=== PATIENT | female | born 2000 | race Hispanic/Latino ===

== ENCOUNTER 2019-11-14 19:02 | Emergency (ER) | payer OTHER ==
--- NOTE | 2019-11-14 20:08 | ER ---
Nurse's Notes [facility] – [place], [place] Name: Rosemary Montague Age: 19 yrs Sex: Female : 2000 Arrival Date: 11/14/2019 Time: 19:07 Bed 11 Private MD: Diagnosis: Impacted cerumen, right ear Presentation: 11/14 19:50 Presenting complaint: Patient states: last night when i cleaned my right ear after i rr5 removed the ear wax it started to have sharp pain and hard to hear. 19:50 Transition of care: patient was not received from another setting of care. Onset of rr5 symptoms was November 13, 2019. Risk Assessment: Do you want to hurt yourself or someone else? Patient reports no desire to harm self or others. Initial Sepsis Screen: Does the patient meet any 2 criteria? No. Patient's initial sepsis screen is negative. Does the patient have a suspected source of infection? No. Patient's initial sepsis screen is negative. Care prior to arrival: None. 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 - Social history:: Smoking status: Patient/guardian denies using tobacco. - Ebola Screening: : Patient negative for fever greater than or equal to 101.5 degrees Fahrenheit, and additional compatible Ebola Virus Disease symptoms Patient denies exposure to infectious person Patient denies travel to an Ebola-affected area in the 21 days before illness onset. Screenin:00 Abuse screen: Denies threats or abuse. Denies injuries from another. Nutritional aa1 screening: No deficits noted. Tuberculosis screening: No symptoms or risk factors identified. Fall Risk None identified. Assessment: 20:00 General: Appears in no apparent distress. comfortable, Behavior is calm, cooperative, aa1 appropriate for age. Pain: Complains of pain in right ear Quality of pain is described as sharp, Pain began 1 day ago. Neuro: Level of Consciousness is awake, alert, obeys commands, Oriented to person, place, time, situation, Moves all extremities. Full function Gait is steady. Respiratory: Airway is patent Respiratory effort is even, unlabored, Respiratory pattern is regular, symmetrical. GI: No signs and/or symptoms were reported involving the gastrointestinal system. : No signs and/or symptoms were reported regarding the genitourinary system. EENT: Reports decreased hearing in right ear pain in right ear. Derm: Skin is intact, is healthy with good turgor, Skin is pink, warm \T\ dry. Musculoskeletal: Circulation, motion, and sensation intact. Capillary refill < 3 seconds. 20:34 Reassessment: Patient appears in no apparent distress at this time. Patient is alert, aa1 oriented x 3, equal unlabored respirations, skin warm/dry/pink. Discussed d/c \T\ f/u instructions with pt; denies questions or concerns at this time. Ambulatory to lobby with steady gait. Vital Signs: 19:54 BP 125 / 57; Pulse 70; Resp 16; Temp 98.5; Pulse Ox 100% ; Weight 58.97 kg; Height 5 rr5 ft. 3 in. (160.02 cm); Pain 5/10; 19:54 Body Mass Index 23.03 (58.97 kg, 160.02 cm) rr5 ED Course: 19:07 Patient arrived in ED. mr 19:21 Autumn Ortiz FNP-C [facility]. kb 19:21 Felipe Hurtado MD is Attending Physician. kb 19:50 Arm band placed on. rr5 19:54 Triage completed. rr5 20:00 Patient has correct armband on for positive identification. Bed in low position. Call aa1 light in reach. 20:34 No provider procedures requiring assistance completed. Patient did not have IV access aa1 during this emergency room visit. Administered Medications: No medications were administered Outcome: 20:05 Discharge ordered by . kb 20:34 Discharged to home ambulatory, with family. aa1 20:34 Condition: good 20:34 Discharge instructions given to patient, family, Instructed on discharge instructions, follow up and referral plans. Demonstrated understanding of instructions, follow-up care. 20:35 Patient left the ED. aa1 Signatures: Autumn Ortiz FNP-C FNP-Ckb Autenrieth, Alissa, RN RN aa1 Priya Travis Raymond, RN RN rr5
--- NOTE | 2019-11-14 20:08 | EDPHYS ---
Physician Documentation [facility] Name: Rosemary Montague Age: 19 yrs Sex: Female : 2000 Arrival Date: 11/14/2019 Time: 19:07 Bed 11 Private MD: ED Physician Felipe Hurtado HPI: 11/14 20:08 This 19 yrs old Female presents to ER via Ambulatory with complaints of Ear kb Pain. 20:08 The patient presents with pain. The complaints affect the right ear. Onset: The kb symptoms/episode began/occurred last night. Modifying factors: The symptoms are alleviated by nothing, the symptoms are aggravated by nothing. Associated signs and symptoms: The patient has no apparent associated signs or symptoms. Severity of symptoms: At their worst the symptoms were moderate in the emergency department the symptoms are unchanged. The patient has not experienced similar symptoms in the past. The patient has not recently seen a physician. Pt reports she cleaned her ears last night and the right one started hurting and felt full. 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 - Social history:: Smoking status: Patient/guardian denies using tobacco. - Ebola Screening: : Patient negative for fever greater than or equal to 101.5 degrees Fahrenheit, and additional compatible Ebola Virus Disease symptoms Patient denies exposure to infectious person Patient denies travel to an Ebola-affected area in the 21 days before illness onset. ROS: 20:06 Constitutional: Negative for fever, chills, and weight loss, Neck: Negative for injury, kb pain, and swelling, Cardiovascular: Negative for chest pain, palpitations, and edema, Respiratory: Negative for shortness of breath, cough, wheezing, and pleuritic chest pain, Abdomen/GI: Negative for abdominal pain, nausea, vomiting, diarrhea, and constipation, MS/Extremity: Negative for injury and deformity, Skin: Negative for injury, rash, and discoloration, Neuro: Negative for headache, weakness, numbness, tingling, and seizure. 20:06 ENT: Positive for ear pain. Exam: 20:06 Constitutional: This is a well developed, well nourished patient who is awake, alert, kb and in no acute distress. Head/Face: Normocephalic, atraumatic. Neck: Trachea midline, no thyromegaly or masses palpated, and no cervical lymphadenopathy. Supple, full range of motion without nuchal rigidity, or vertebral point tenderness. No Meningismus. Chest/axilla: Normal chest wall appearance and motion. Nontender with no deformity. No lesions are appreciated. Cardiovascular: Regular rate and rhythm with a normal S1 and S2. No gallops, murmurs, or rubs. Normal PMI, no JVD. No pulse deficits. Respiratory: Lungs have equal breath sounds bilaterally, clear to auscultation and percussion. No rales, rhonchi or wheezes noted. No increased work of breathing, no retractions or nasal flaring. Abdomen/GI: Soft, non-tender, with normal bowel sounds. No distension or tympany. No guarding or rebound. No evidence of tenderness throughout. Skin: Warm, dry with normal turgor. Normal color with no rashes, no lesions, and no evidence of cellulitis. MS/ Extremity: Pulses equal, no cyanosis. Neurovascular intact. Full, normal range of motion. Neuro: Awake and alert, GCS 15, oriented to person, place, time, and situation. Cranial nerves II-XII grossly intact. Motor strength 5/5 in all extremities. Sensory grossly intact. Cerebellar exam normal. Normal gait. 20:06 ENT: External ear(s): are unremarkable, Ear canal(s): cerumen impaction, that is moderate, that is hard, occluding the right ear canal, TM's: not visable, because of cerumen, Nose: is normal, Mouth: is normal, Posterior pharynx: is normal. Vital Signs: 19:54 BP 125 / 57; Pulse 70; Resp 16; Temp 98.5; Pulse Ox 100% ; Weight 58.97 kg; Height 5 rr5 ft. 3 in. (160.02 cm); Pain 5/10; 19:54 Body Mass Index 23.03 (58.97 kg, 160.02 cm) rr5 MDM: 19:56 Patient medically screened. kb 20:08 Data reviewed: vital signs, nurses notes. Data interpreted: Pulse oximetry: on room air kb is 100 %. Interpretation: normal. Counseling: I had a detailed discussion with the patient and/or guardian regarding: the historical points, exam findings, and any diagnostic results supporting the discharge/admit diagnosis, the need for outpatient follow up, an ENT specialist, to return to the emergency department if symptoms worsen or persist or if there are any questions or concerns that arise at home. Administered Medications: No medications were administered Disposition: 11/15 01:23 Co-signature as Attending Physician, Felipe Hurtado MD. raiza Disposition: 11/14/19 20:05 Discharged to Home. Impression: Impacted cerumen, right ear. - Condition is Stable. - Discharge Instructions: Earwax Buildup, Adult, Ear Irrigation. - Medication Reconciliation Form, Thank You Letter, Antibiotic Education, Prescription Opioid Use form. - Follow up: Private Physician; When: 2 - 3 days; Reason: Recheck today's complaints, Continuance of care, Re-evaluation by your physician. Follow up: Emergency Department; When: As needed; Reason: Worsening of condition. Signatures: Autumn Ortzi, ESTELAC KIRSTIN-Naty Garnica RN RN aa1 Felipe Hurtado MD MD pkl Lars Rivera, RN RN rr5 Corrections: (The following items were deleted from the chart) 11/14 20:35 20:05 11/14/2019 20:05 Discharged to Home. Impression: Impacted cerumen, right ear. aa1 Condition is Stable. Forms are Medication Reconciliation Form, Thank You Letter, Antibiotic Education, Prescription Opioid Use. Follow up: Private Physician; When: 2 - 3 days; Reason: Recheck today's complaints, Continuance of care, Re-evaluation by your physician. Follow up: Emergency Department; When: As needed; Reason: Worsening of condition. kb
[2019-11-14 22:15] VITALS: BP 125/57; TEMP 98.5; O2SAT 100
== END 2019-11-14 20:35 | disposition home or self-care (01) ==
LOC: ER 19:02
DX: H61.21 Impacted cerumen, right ear (principal)
CPT/HCPCS: 99281

== ENCOUNTER 2020-01-22 17:46 | Emergency (ER) | payer OTHER ==
--- NOTE | 2020-01-22 19:00 | RAD REPORT ---
EXAM DESCRIPTION: RAD - Hand Right 3 View - 01/22/2020 6:50 pm CLINICAL HISTORY: PAIN COMPARISON: No comparisons FINDINGS: Tuft fracture with significant soft tissue swelling and laceration affects the distal fift h finger. No foreign body visible.
[2020-01-22] MEDS ORDERED: HYDROCODONE/APAP 7.5/325 MG TAB ONE (19:12)
[2020-01-22] MEDS ORDERED: LIDOCAINE 1% MPF 5 ML VIAL ONE (19:12)
[2020-01-22] MEDS ORDERED: TETANUS & DIPHTHERIA TOX,ADULT 0.5 ML VIAL ONE (19:12)
--- NOTE | 2020-01-22 20:11 | ER ---
Nurse's Notes [facility] Name: Rosemary Montague Age: 19 yrs Sex: Female : 2000 Arrival Date: 01/22/2020 Time: 17:49 Bed 19 Private MD: Diagnosis: Laceration without foreign body of right hand;Fracture of unspecified phalanx of right little finger Presentation: 01/21 18:19 Chief complaint: Patient states: Caught finger in door at work, laceration to R pinky ph finger, bleeding controlled w/ dressing. Coronavirus screen: The patient has NOT traveled to a country currently being monitored by the [facility] within the last 14 days. The patient has NOT had contact with any known and/or suspected case of coronavirus. Ebola Screen: No symptoms or risks identified at this time. Initial Sepsis Screen: Does the patient meet any 2 criteria? No. Patient's initial sepsis screen is negative. Does the patient have a suspected source of infection? No. Patient's initial sepsis screen is negative. Risk Assessment: Do you want to hurt yourself or someone else? Patient reports no desire to harm self or others. 18:19 Method Of Arrival: Ambulatory ph 18:19 Acuity: TIFFANY 4 ph 18:30 Onset of symptoms was January 22, 2020 at 16:30. 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 - Social history:: Smoking status: Patient denies any tobacco usage or history of. Screenin:37 Abuse screen: Denies threats or abuse. Nutritional screening: No deficits noted. rb1 Tuberculosis screening: No symptoms or risk factors identified. Fall Risk None identified. Assessment: 18:37 General: Appears uncomfortable, Behavior is calm, cooperative. Pain: Complains of pain rb1 in palmar aspect of distal phalanx of right little finger Pain currently is 10 out of 10 on a pain scale. Pain began 1430. Neuro: Level of Consciousness is awake, alert, obeys commands, Oriented to person, place, time, situation. Cardiovascular: Capillary refill < 3 seconds is brisk in bilateral fingers. Respiratory: Airway is patent Respiratory effort is even, unlabored, Respiratory pattern is regular, symmetrical. GI: No signs and/or symptoms were reported involving the gastrointestinal system. : No signs and/or symptoms were reported regarding the genitourinary system. Derm: Skin is pink, warm \T\ dry. Musculoskeletal: laceration noted to the 5th digit on the right hand. Pt. reports it got caught between the swinging door and the door frame. 19:15 Reassessment: Patient appears in no apparent distress at this time. Patient and/or family updated on plan of care and expected duration. Pain level reassessed. Patient is alert, oriented x 3, equal unlabored respirations, skin warm/dry/pink. Vital Signs: 18:19 BP 129 / 46; Pulse 68; Resp 18; Temp 98.6; Pulse Ox 100% on R/A; Weight 65.77 kg; ph Height 5 ft. 4 in. (162.56 cm); Pain 10/10; 19:35 BP 111 / 54; Pulse 69; Resp 18; Pulse Ox 98% on R/A; wh 18:19 Body Mass Index 24.89 (65.77 kg, 162.56 cm) ph ED Course: 17:49 Patient arrived in ED. ag5 18:23 Triage completed. ph 18:24 Arm band placed on Patient placed in an exam room. ph 18:29 [facility] Den[facility]-C [facility]. la1 18:29 Donald Julio MD is Attending Physician. la1 18:32 Es Crow, RN is Primary Nurse. rb1 18:37 Patient has correct armband on for positive identification. Bed in low position. Call rb1 light in reach. Side rails up X 1. Pulse ox on. NIBP on. 18:51 Hand Right 3 View XRAY In Process Unspecified. EDMS 19:50 Assist provider with laceration repair on dorsal aspect of distal phalanx of right little finger that was 2.5 cm. or less using sutures. Set up tray. Performed by Torrey ST Dressed with 2x2 with finger splint Patient tolerated well. Patient did not have IV access during this emergency room visit. Administered Medications: 19:18 Drug: Tetanus-Diphtheria Toxoid Adult 0.5 ml {Rubber Process Hand: [employer]. Exp: 10/14/2021. Lot #: [id number]. } Route: IM; Site: right deltoid; 20:26 Follow up: Response: No adverse reaction 19:18 Drug: [place] (7.5 mg-325 mg) 1 tabs Route: PO; 20:26 Follow up: Response: No adverse reaction; Pain is decreased; RASS: Alert and Calm (0) 19:42 Drug: Lidocaine (1 %) 5 mg {Note: Administered by Torrey Denney [employer].} Route: Infiltration; Outcome: 20:10 Discharge ordered by laAz 20:26 Discharged to home ambulatory, with family. 20:26 Condition: stable 20:26 Discharge instructions given to patient, family, Instructed on discharge instructions, follow up and referral plans. medication usage, wound care, Demonstrated understanding of instructions, follow-up care, medications, wound care, Prescriptions given X 1. 20:27 Patient left the ED. Signatures: Dispatcher [employer] EDMS Torrey Denney, HOTEL RECEPTIONIST-C HOTEL RECEPTIONIST-Cla1 Michelle Rabago RN RN Es Crow RN RN [facility] Dona Jcakson Sigrid Gautam 5
--- NOTE | 2020-01-22 20:12 | EDPHYS ---
Physician Documentation [facility] Name: Rosemary Montague Age: 19 yrs Sex: Female : 2000 Arrival Date: 01/22/2020 Time: 17:49 Bed 19 Private MD: ED Physician Donald Julio HPI: 01/21 20:05 This 19 yrs old Female presents to ER via Ambulatory with complaints of Finger la1 Laceration. 20:05 The patient or guardian reports a laceration, clean, 1.5 cm(s). The complaints affect la1 the right side which is dominant. Context: The problem was sustained at work. Onset: The symptoms/episode began/occurred just prior to arrival. Modifying factors: The symptoms are alleviated by nothing, the symptoms are aggravated by movement. Associated signs and symptoms: Pertinent negatives: numbness distally, tingling distally. Severity of symptoms: At their worst the symptoms were mild. The patient has experienced a previous episode. 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 - Social history:: Smoking status: Patient denies any tobacco usage or history of. ROS: 20:07 Constitutional: Negative for fever, chills, and weight loss, Eyes: Negative for injury, la1 pain, redness, and discharge, ENT: Negative for injury, pain, and discharge, Neck: Negative for injury, pain, and swelling, Cardiovascular: Negative for chest pain, palpitations, and edema, Respiratory: Negative for shortness of breath, cough, wheezing, and pleuritic chest pain, Abdomen/GI: Negative for abdominal pain, nausea, vomiting, diarrhea, and constipation, MS/Extremity: Negative for injury and deformity. 20:07 Skin: Positive for laceration(s). Exam: 20:07 Constitutional: This is a well developed, well nourished patient who is awake, alert, la1 and in no acute distress. Head/Face: Normocephalic, atraumatic. Eyes: Pupils equal round and reactive to light, extra-ocular motions intact. Respiratory: No increased work of breathing MS/ Extremity: Pulses equal, no cyanosis. Neurovascular intact. Full, normal range of motion. 20:07 Skin: injury, laceration(s), the wound is approximately 1.5 cm(s), with a depth of 0.5 cm(s), of the dorsal aspect of distal phalanx of right little finger, that can be described as clean, linear, without bleeding. Vital Signs: 18:19 BP 129 / 46; Pulse 68; Resp 18; Temp 98.6; Pulse Ox 100% on R/A; Weight 65.77 kg; ph Height 5 ft. 4 in. (162.56 cm); Pain 10/10; 19:35 BP 111 / 54; Pulse 69; Resp 18; Pulse Ox 98% on R/A; wh 18:19 Body Mass Index 24.89 (65.77 kg, 162.56 cm) ph Laceration: 20:08 Wound Repair of 15cm ( 5.9in ) subcutaneous laceration to dorsal aspect of distal la1 phalanx of right little finger. Distal neuro/vascular/tendon intact. Anesthesia: Local anesthetic administered with 2 mls of 1% lidocaine. Wound prep: Moderate cleansing, Copious irrigation. Skin closed with 2 4-0 Prolene using simple sutures and sterile technique. Dressed with 4x4's. Patient tolerated well. MDM: 18:46 Patient medically screened. la1 20:11 Data reviewed: vital signs, nurses notes, radiologic studies, I have discussed the la1 patient's presentation/case with the attending Emergency Department Physician; and as a result, I will discharge patient. Data interpreted: Pulse oximetry: on room air is 98 %. Counseling: I had a detailed discussion with the patient and/or guardian regarding: the historical points, exam findings, and any diagnostic results supporting the discharge/admit diagnosis, lab results, radiology results, to return to the emergency department if symptoms worsen or persist or if there are any questions or concerns that arise at home. Special discussion: I discussed in detail with the patient the higher chance of wound infection based on his presenting history. Based on the history and exam findings, there is no indication for further emergent testing or inpatient evaluation. I discussed with the patient/guardian the need to see the hand specialist for further evaluation of the symptoms. 01/21 18:46 Order name: Hand Right 3 View XRAY; Complete Time: 19:12 la1 Administered Medications: 19:18 Drug: Tetanus-Diphtheria Toxoid Adult 0.5 ml {Rides Supervisor: [employer]. Exp: 10/14/2021. Lot #: [id number]. } Route: IM; Site: right deltoid; 20:26 Follow up: Response: No adverse reaction 19:18 Drug: [place] (7.5 mg-325 mg) 1 tabs Route: PO; 20:26 Follow up: Response: No adverse reaction; Pain is decreased; RASS: Alert and Calm (0) 19:42 Drug: Lidocaine (1 %) 5 mg {Note: Administered by Torrey Denney [employer].} Route: Infiltration; Disposition: 01/22 07:03 Co-signature as Attending Physician, Donald Julio MD. rn Disposition: 01/22/20 20:10 Discharged to Home. Impression: Laceration without foreign body of right hand, Fracture of unspecified phalanx of right little finger. - Condition is Stable. - Discharge Instructions: Finger Fracture, Sutured Wound Care. - Prescriptions for Augmentin 875- 125 mg Oral Tablet - take 1 tablet by ORAL route every 12 hours for 10 days; 20 tablet. - Medication Reconciliation Form, Thank You Letter, Antibiotic Education, Work release form form. - Follow up: Private Physician; When: 5 - 6 days; Reason: Recheck today's complaints, Re-evaluation by your physician. - Problem is new. - Symptoms have improved. Signatures: Dispatcher [employer] Donald Carlton MD MD rn Attema, Torrey, SUPERINTENDENT MEASUREMENT-C SUPERINTENDENT MEASUREMENT-Cla1 Michelle Rabago RN RN Dona Jackson Corrections: (The following items were deleted from the chart) 01/21 20:27 20:10 01/22/2020 20:10 Discharged to Home. Impression: Laceration without foreign body wh of right hand; Fracture of unspecified phalanx of right little finger. Condition is Stable. Forms are Medication Reconciliation Form, Thank You Letter, Antibiotic Education, Prescription Opioid Use. Follow up: Private Physician; When: 5 - 6 days; Reason: Recheck today's complaints, Re-evaluation by your physician. Problem is new. Symptoms have improved. la1
[2020-01-22 20:51] VITALS: TEMP 98.6
[2020-01-22 20:53] VITALS: BP 111/54; O2SAT 98
== END 2020-01-22 20:27 | disposition home or self-care (01) ==
LOC: ER 17:46
PROC: 0JQJ0ZZ Repair Right Hand Subcutaneous Tissue and Fascia, Open Approach (ICD-10-PCS; principal; 2020-01-22)
DX: S62.606A Fracture of unspecified phalanx of right little finger, initial encounter for closed fracture (principal); X58.XXXA Exposure to other specified factors, initial encounter; Y93.9 Activity, unspecified; Y92.89 Other specified places as the place of occurrence of the external cause; Y99.8 Other external cause status
CPT/HCPCS: 90471; 90714; 99284

== ENCOUNTER 2020-02-17 23:41 | Emergency (ER) | payer OTHER ==
[2020-02-18] MEDS ORDERED: NA CHLORIDE 0.9% 1,000 ML ONE (00:38)
[2020-02-18 00:48] LABS: Urine Blood 3+ (NEG); Urine Glucose NEGATIVE (NEG); Urine Protein NEGATIVE (NEG); Urine Specific Gravity 1.015 (1.005-1.030); Urine pH 6.5 (5.0-7.0)
[2020-02-18 01:25] LABS: Absolute Lymphocytes (CBC) 2.5 K/uL (0.7-4.9); Basophils % 0.7 % (0-1.3); Hematocrit 39.8 % (36.0-45.0); Lymphocytes % 30.7 % (15.3-44.8); MPV 10.2 fL (7.6-11.3)
[2020-02-18 01:57] LABS: BUN Blood Urea Nitrogen 10 mg/dL (7-18); Bicarbonate 24 mmol/L (21-32); Glucose Level 104 mg/dL (74-106); HCG, Quantitative 32612 mIU/mL (1-3); Potassium 3.5 mmol/L (3.5-5.1); Sodium Level 138 mmol/L (136-145)
--- NOTE | 2020-02-18 04:02 | ER ---
Nurse's Notes [facility] Name: Rosemary Montague Age: 19 yrs Sex: Female : 2000 Arrival Date: 02/17/2020 Time: 23:44 Bed 19 Private MD: Diagnosis: Threatened ; related conditions, unspecified, first trimester Presentation: 02/16 23:50 Chief complaint: Patient states: I am and I noticed I was having some heavy jb4 bleeding with clots. 23:50 Coronavirus screen: Patient denies fever greater than 100.4F, cough, shortness of jb4 breath, or difficulty breathing. Proceed with normal triage process. Ebola Screen: No symptoms or risks identified at this time. Initial Sepsis Screen: Does the patient meet any 2 criteria? No. Patient's initial sepsis screen is negative. Does the patient have a suspected source of infection? No. Patient's initial sepsis screen is negative. Risk Assessment: Do you want to hurt yourself or someone else? Patient reports no desire to harm self or others. 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 - Social history:: Smoking status: Patient denies any tobacco usage or history of. Patient/guardian denies using alcohol, street drugs. - Family history:: not pertinent. Screenin:50 Abuse screen: Denies threats or abuse. Nutritional screening: No deficits noted. jb4 Tuberculosis screening: No symptoms or risk factors identified. Fall Risk None identified. Assessment: 23:50 Obstetrical Assessment: General assessment: awake and alert, skin warm and dry, jb4 respirations even and unlabored. General: Appears in no apparent distress. comfortable, Behavior is calm, cooperative, appropriate for age. Pain: Denies pain. Neuro: Level of Consciousness is awake, alert, obeys commands, Oriented to person, place, time, situation. Cardiovascular: Patient's skin is warm and dry. Respiratory: Airway is patent Respiratory effort is even, unlabored, Respiratory pattern is regular, symmetrical. GI: No signs and/or symptoms were reported involving the gastrointestinal system. : Urine is clear, small blood clots noted. Reports vaginal bleeding that is with clots, heavy flow. EENT: No signs and/or symptoms were reported regarding the EENT system. Derm: Skin is intact, Skin is pink, warm \T\ dry. Musculoskeletal: Circulation, motion, and sensation intact. Range of motion: intact in all extremities. 02/17 01:00 Reassessment: Patient appears in no apparent distress at this time. Patient and/or jb4 family updated on plan of care and expected duration. Pain level reassessed. Patient is alert, oriented x 3, equal unlabored respirations, skin warm/dry/pink. 02:00 Reassessment: Patient appears in no apparent distress at this time. Patient and/or jb4 family updated on plan of care and expected duration. Pain level reassessed. Patient is alert, oriented x 3, equal unlabored respirations, skin warm/dry/pink. 03:38 Reassessment: Patient appears in no apparent distress at this time. Patient and/or jb4 family updated on plan of care and expected duration. Pain level reassessed. Patient is alert, oriented x 3, equal unlabored respirations, skin warm/dry/pink. 04:33 Reassessment: Patient appears in no apparent distress at this time. Patient and/or jb4 family updated on plan of care and expected duration. Pain level reassessed. Patient is alert, oriented x 3, equal unlabored respirations, skin warm/dry/pink. Pt verbalized understanding of d/c and follow up instructions. Denies questions or concerns. Ambulated out of ED with steady gait. Vital Signs: 02/16 23:50 BP 122 / 55; Pulse 70; Resp 18; Temp 98.5(O); Pulse Ox 100% on R/A; Weight 65.77 kg jb4 (R); Height 5 ft. 4 in. (162.56 cm) (R); Pain 0/10; 02/17 01:00 BP 114 / 49; Pulse 66; Resp 16; Pulse Ox 100% on R/A; jb4 02:00 BP 116 / 55; Pulse 71; Resp 16; Pulse Ox 100% on R/A; jb4 03:30 BP 119 / 59; Pulse 64; Resp 16; Pulse Ox 100% on R/A; jb4 04:30 BP 107 / 65; Pulse 78; Resp 16; Pulse Ox 100% on R/A; jb4 02/16 23:50 Body Mass Index 24.89 (65.77 kg, 162.56 cm) jb4 ED Course: 02/16 23:44 Patient arrived in ED. mr 23:45 Seng Mullins MD is Attending Physician. [facility] 23:50 Arm band placed on right wrist. jb4 23:50 Patient has correct armband on for positive identification. Bed in low position. Call jb4 light in reach. Side rails up X 1. Pulse ox on. NIBP on. 23:57 Oleg Reardon, RN is Primary Nurse. jb4 02/17 00:19 Triage completed. jb4 04:01 Tru Farias MD is Referral Physician. [facility] 04:25 Transvaginal Ob In Process Unspecified. EDID 04:30 No provider procedures requiring assistance completed. IV discontinued, intact, jb4 bleeding controlled, No redness/swelling at site. Pressure dressing applied. Administered Medications: 00:30 Drug: NS 0.9% 1000 ml Route: IV; Rate: 1 bolus; Site: left antecubital; jb4 01:45 Follow up: Response: No adverse reaction; IV Status: Completed infusion; IV Intake: jb4 1000ml Intake: 01:45 IV: 1000ml; Total: 1000ml. jb4 Outcome: 04:01 Discharge ordered by . [facility] 04:30 Discharged to home ambulatory. jb4 04:30 Condition: stable 04:30 Discharge instructions given to patient, Instructed on discharge instructions, follow up and referral plans. medication usage, Demonstrated understanding of instructions, follow-up care, medications, Prescriptions given X 1. 04:37 Patient left the ED. jb4 Signatures: Dispatcher [employer] EDID Seng Mullins MD MD cha Rivera, Mary mr Oleg Reardon, RN RN jb4
--- NOTE | 2020-02-18 04:03 | EDPHYS ---
Physician Documentation [facility] Name: Rosemary Montague Age: 19 yrs Sex: Female : 2000 Arrival Date: 02/17/2020 Time: 23:44 Bed 19 Private MD: ED Physician Seng Mullins HPI: 02/17 00:01 This 19 yrs old Female presents to ER via Unassigned with complaints of marce Vaginal Bleeding, + Preg <12wks. 00:01 The patient presents to the emergency department with vaginal bleeding. The estimated marce gestational age is 6 weeks. course: care: none. Previous pregnancies: the patient has never been . Associated signs and symptoms: Pertinent positives: vaginal bleeding. The patient has not experienced similar symptoms in the past. 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 - Social history:: Smoking status: Patient denies any tobacco usage or history of. Patient/guardian denies using alcohol, street drugs. - Family history:: not pertinent. ROS: 02/17 00:01 Constitutional: Negative for fever, chills, and weight loss, Eyes: Negative for injury, marce pain, redness, and discharge, ENT: Negative for injury, pain, and discharge, Neck: Negative for injury, pain, and swelling, Cardiovascular: Negative for chest pain, palpitations, and edema, Respiratory: Negative for shortness of breath, cough, wheezing, and pleuritic chest pain, Back: Negative for injury and pain, : Negative for injury, bleeding, discharge, and swelling, MS/Extremity: Negative for injury and deformity, Skin: Negative for injury, rash, and discoloration, Neuro: Negative for headache, weakness, numbness, tingling, and seizure, Psych: Negative for depression, anxiety, suicide ideation, homicidal ideation, and hallucinations, Allergy/Immunology: Negative for hives, rash, and allergies, Endocrine: Negative for neck swelling, polydipsia, polyuria, polyphagia, and marked weight changes, Hematologic/Lymphatic: Negative for swollen nodes, abnormal bleeding, and unusual bruising. Abdomen/GI: Positive for abdominal pain, of the suprapubic area. Exam: 00:01 Constitutional: This is a well developed, well nourished patient who is awake, alert, marce and in no acute distress. Head/Face: Normocephalic, atraumatic. Eyes: Pupils equal round and reactive to light, extra-ocular motions intact. Lids and lashes normal. Conjunctiva and sclera are non-icteric and not injected. Cornea within normal limits. Periorbital areas with no swelling, redness, or edema. ENT: Nares patent. No nasal discharge, no septal abnormalities noted. Tympanic membranes are normal and external auditory canals are clear. Oropharynx with no redness, swelling, or masses, exudates, or evidence of obstruction, uvula midline. Mucous membranes moist. Neck: Trachea midline, no thyromegaly or masses palpated, and no cervical lymphadenopathy. Supple, full range of motion without nuchal rigidity, or vertebral point tenderness. No Meningismus. Chest/axilla: Normal chest wall appearance and motion. Nontender with no deformity. No lesions are appreciated. Cardiovascular: Regular rate and rhythm with a normal S1 and S2. No gallops, murmurs, or rubs. Normal PMI, no JVD. No pulse deficits. Respiratory: Lungs have equal breath sounds bilaterally, clear to auscultation and percussion. No rales, rhonchi or wheezes noted. No increased work of breathing, no retractions or nasal flaring. Abdomen/GI: Soft, non-tender, with normal bowel sounds. No distension or tympany. No guarding or rebound. No evidence of tenderness throughout. Back: No spinal tenderness. No costovertebral tenderness. Full range of motion. Skin: Warm, dry with normal turgor. Normal color with no rashes, no lesions, and no evidence of cellulitis. MS/ Extremity: Pulses equal, no cyanosis. Neurovascular intact. Full, normal range of motion. Neuro: Awake and alert, GCS 15, oriented to person, place, time, and situation. Cranial nerves II-XII grossly intact. Motor strength 5/5 in all extremities. Sensory grossly intact. Cerebellar exam normal. Normal gait. Psych: Awake, alert, with orientation to person, place and time. Behavior, mood, and affect are within normal limits. Vital Signs: 02/16 23:50 BP 122 / 55; Pulse 70; Resp 18; Temp 98.5(O); Pulse Ox 100% on R/A; Weight 65.77 kg jb4 (R); Height 5 ft. 4 in. (162.56 cm) (R); Pain 0/10; 02/17 01:00 BP 114 / 49; Pulse 66; Resp 16; Pulse Ox 100% on R/A; jb4 02:00 BP 116 / 55; Pulse 71; Resp 16; Pulse Ox 100% on R/A; jb4 03:30 BP 119 / 59; Pulse 64; Resp 16; Pulse Ox 100% on R/A; jb4 04:30 BP 107 / 65; Pulse 78; Resp 16; Pulse Ox 100% on R/A; jb4 02/16 23:50 Body Mass Index 24.89 (65.77 kg, 162.56 cm) 4 MDM: 02/16 23:53 Patient medically screened. [facility] 02/17 00:04 Data reviewed: vital signs, nurses notes, lab test result(s), radiologic studies, marce ultrasound. 02/16 23:47 Order name: Quantitative Hcg; Complete Time: 04:01 [facility] 02/16 23:47 Order name: Abo/rh Typing; Complete Time: 01:44 [facility] 02/16 23:47 Order name: Basic Metabolic Panel; Complete Time: 04:01 [facility] 02/16 23:47 Order name: CBC with Diff; Complete Time: 01:44 [facility] 02/17 00:35 Order name: Urine Dipstick--Ancillary (enter results); Complete Time: 00:58 mw2 02/17 00:35 Order name: Urine --Ancillary (enter results); Complete Time: 00:58 mw2 02/16 23:47 Order name: Urine Test (obtain specimen); Complete Time: 00:23 [facility] 02/16 23:47 Order name: IV Saline Lock; Complete Time: 01:10 [facility] 02/16 23:47 Order name: Labs collected and sent; Complete Time: 01:10 [facility] 02/16 23:47 Order name: NPO; Complete Time: 00:23 [facility] 02/16 23:47 Order name: Urine Dipstick-Ancillary (obtain specimen); Complete Time: 00:23 [facility] 02/16 23:47 Order name: US Transvaginal Ob [facility] 02/17 00:45 Order name: Urine Culture jb4 Administered Medications: 00:30 Drug: NS 0.9% 1000 ml Route: IV; Rate: 1 bolus; Site: left antecubital; jb4 01:45 Follow up: Response: No adverse reaction; IV Status: Completed infusion; IV Intake: jb4 1000ml Disposition: 02/18/20 04:01 Discharged to Home. Impression: Threatened , related conditions, unspecified, first trimester. - Condition is Stable. - Discharge Instructions: Threatened Miscarriage, Vaginal Bleeding During , First Trimester, First Trimester of , Dito-we-Xnco, First Trimester of , Abdominal Pain During , Xtuz-iz-Kvmm, Threatened Miscarriage, Mxlk-wy-Qjgn, Pelvic Rest, Vaginal Bleeding During , First Trimester, Vvpq-ud-Gcyo. - Prescriptions for Vitamin 27- 0.8 mg Oral Tablet - take 1 tablet by ORAL route once daily; 30 tablet. - Medication Reconciliation Form, Thank You Letter, Antibiotic Education, Prescription Opioid Use form. - Follow up: Private Physician; When: 2 - 3 days; Reason: Recheck today's complaints, Continuance of care, Re-evaluation by your physician. Follow up: Tru Farias; When: 2 - 3 days; Reason: Recheck today's complaints, Re-evaluation by your physician. - Problem is new. - Symptoms have improved. Signatures: Dispatcher [employer] EDCO Seng Mullins MD MD cha Bryson, James RN RN jb4 Corrections: (The following items were deleted from the chart) 04:37 04:01 02/18/2020 04:01 Discharged to Home. Impression: Threatened ; jb4 related conditions, unspecified, first trimester. Condition is Stable. Discharge Instructions: Threatened Miscarriage, Vaginal Bleeding During , First Trimester, First Trimester of , Viel-ia-Jphw, First Trimester of , Abdominal Pain During , Qtvd-ny-Qtts, Threatened Miscarriage, Tdcd-bo-Pdvl, Pelvic Rest, Vaginal Bleeding During , First Trimester, Odcz-cb-Ufrc. Prescriptions for Vitamin 27-0.8 mg Oral Tablet - take 1 tablet by ORAL route once daily; 30 tablet. and Forms are Medication Reconciliation Form, Thank You Letter, Antibiotic Education, Prescription Opioid Use. Follow up: Private Physician; When: 2 - 3 days; Reason: Recheck today's complaints, Continuance of care, Re-evaluation by your physician. Follow up: Tru Farias; When: 2 - 3 days; Reason: Recheck today's complaints, Re-evaluation by your physician. Problem is new. Symptoms have improved. marce
[2020-02-18 04:43] VITALS: TEMP 98.5; O2SAT 100
[2020-02-18 04:48] VITALS: BP 107/65
--- NOTE | 2020-02-18 11:44 | RAD REPORT ---
EXAM DESCRIPTION: US - Transvaginal OB - 02/18/2020 4:26 am CLINICAL HISTORY: ABD CRAMPING, COMPARISON: None. TECHNIQUE: High-resolution grayscale endovaginal sonographic evaluation of the pelvis. Color flow ut ilized. FINDINGS: Uterus: 9.6 x 5.7 x 8.6 cm. Endometrium: Intrauterine gestational sac with a pole in the fundus. The exit is also visualize d. Average gestational sac diameter is 1.72 cm corresponding to 6 week, 4 day gestation. Average embr yo crown-rump length is 0.54 cm corresponding to 6 week, 3 day gestation. Embryonic heart rate is det ected at 102-130 bpm. Right ovary: 3.4 x 2.7 x 2.9 cm. Right ovary appears normal with small follicles. Right ovarian flow is present. Left ovary: 2.9 x 3.7 x 2.8 cm. Left ovary appears normal with flow identified. Peritoneum: Minimal pelvic free fluid. IMPRESSION: 1. Uncomplicated live 6 week, 3 day intrauterine gestation. GILDARDO: 10/10/2020. 2. Trace pelvic free fluid. Electronically signed by: Wendy Patel DO 02/18/2020 4:58 AM CDT Due to temporary technical issues with the PACS/Fluency reporting system, reports are being signed by the in house radiologist as a courtesy to ensure prompt reporting. The interpreting radiologist is f ully responsible for the content of the report.
== END 2020-02-18 04:37 | disposition home or self-care (01) ==
LOC: ER 23:41
DX: O20.0 Threatened abortion (principal); Z3A.01 Less than 8 weeks gestation of pregnancy
CPT/HCPCS: 87088; 85025; 87086; 80048; 36415; 86900; 81025; 86901; 84702; 81003; 76817; 96360; 99284; J7030

== ENCOUNTER 2020-02-23 | Emergency (ER) | payer OTHER | END 2020-02-23 14:39 | disposition home or self-care (01) | CPT/HCPCS: 36415; 76817; 80048; 81003; 81015; 81025; 84702; 85025; 99284 ==

== ENCOUNTER 2021-11-27 22:48 | Emergency (ER) | payer OTHER ==
[2021-11-27 23:29] LABS: Urine Blood 3+ (Negative); Urine Glucose Negative (Negative); Urine Protein Negative (Negative); Urine Specific Gravity 1.025 (1.005-1.030); Urine pH 5.5 (5.0-7.0)
[2021-11-27] MEDS ORDERED: KETOROLAC 30 MG/ML INJ ONE (23:39)
[2021-11-27 23:57] LABS: Absolute Lymphocytes (CBC) 1.3 K/uL (0.7-4.9); Hematocrit 40.9 % (36.0-45.0); Lymphocytes % 16.1 % (15.3-44.8); MPV 9.7 fL (7.6-11.3); RBC Red Blood Cell Count 4.81 M/uL (3.86-4.86)
[2021-11-27 23:59] LABS: Urine Specific Gravity/Preg 1.025 (1.005-1.030)
[2021-11-28 00:08] LABS: ALT/SGPT 15 U/L (12-78); AST/SGOT 11 U/L (15-37); Albumin 3.8 g/dL (3.4-5.0); Alkaline Phosphatase 67 U/L (45-117); BUN Blood Urea Nitrogen 9 mg/dL (7-18); Bicarbonate 26 mmol/L (21-32); Bilirubin Direct 0.1 mg/dL (0-0.2); Bilirubin Total 0.4 mg/dL (0.2-1.0); Glucose Level 100 mg/dL (74-106); Lipase 94 U/L (73-393); Potassium 3.2 mmol/L (3.5-5.1); Protein, Total 7.7 g/dL (6.4-8.2); Sodium Level 139 mmol/L (136-145)
--- NOTE | 2021-11-28 00:18 | EDPHYS ---
Physician Documentation [facility] Name: Rosemary Montague Age: 21 yrs Sex: Female : 2000 Arrival Date: 11/27/2021 Time: 22:52 Bed 23 Private MD: ED Physician Lianet Little HPI: 11/28 00:02 This 21 yrs old Female presents to ER via Ambulatory with complaints of kb Abdominal Pain. 00:02 The patient presents with abdominal pain in the upper abdomen. Onset: The kb symptoms/episode began/occurred last night. The symptoms do not radiate. Associated signs and symptoms: none. The symptoms are described as constant. Modifying factors: The symptoms are alleviated by nothing, the symptoms are aggravated by nothing. Severity of pain: At its worst the pain was mild moderate in the emergency department the pain is unchanged. The patient has not experienced similar symptoms in the past. The patient has not recently seen a physician. Pt reports abd pain that started in the lower abd last night and is now in the upper abd. States she does not have nausea, but induced an episode of vomiting to see if that would make the pain better and it didn't . 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 - Social history:: Smoking status: Patient denies any tobacco usage or history of. ROS: 11/28 00:02 Constitutional: Negative for fever, chills, and weight loss. kb Abdomen/GI: Positive for abdominal pain, Negative for nausea, vomiting, and diarrhea. All other systems are negative. Exam: 00:02 Constitutional: This is a well developed, well nourished patient who is awake, alert, kb and in no acute distress. Head/Face: Normocephalic, atraumatic. ENT: Moist Mucous membranes Cardiovascular: Regular rate and rhythm with a normal S1 and S2. No gallops, murmurs, or rubs. No pulse deficits. Respiratory: Respirations even and unlabored. No increased work of breathing. Talking in full sentences Abdomen/GI: Soft, non-tender. No distention Skin: Warm, dry with normal turgor. Normal color. MS/ Extremity: Pulses equal, no cyanosis. Neurovascular intact. Full, normal range of motion. Neuro: Awake and alert, GCS 15, oriented to person, place, time, and situation. Moves all extremities. Normal gait. Psych: Awake, alert, with orientation to person, place and time. Behavior, mood, and affect are within normal limits. Vital Signs: 11/27 23:01 BP 134 / 76; Pulse 60; Resp 18; Temp 98.2; Pulse Ox 100% on R/A; Weight 68.04 kg; tw5 Height 5 ft. 3 in. (160.02 cm); Pain 8/10; 23:10 BP 119 / 69 LA Supine (auto/reg); Pulse 53 RA; Resp 16; Temp 98.6(O); Pulse Ox 100% on tk1 R/A; 23:45 BP 113 / 68 LA Supine (auto/reg); Pulse 51 RA; Resp 16 S; Pulse Ox 100% on R/A; tk1 11/28 00:34 BP 91 / 61 LA Sitting (auto/reg); Pulse 55 RA; Resp 16 S; Temp 98.2(O); Pulse Ox 100% tk1 on R/A; 00:36 Pain 2/10; tk1 11/27 23:01 Body Mass Index 26.57 (68.04 kg, 160.02 cm) tw5 Bethany Coma Score: 11/27 23:10 Eye Response: spontaneous(4). Verbal Response: oriented(5). Motor Response: obeys tk1 commands(6). Total: 15. MDM: 23:06 Patient medically screened. kb 11/28 00:02 Data reviewed: vital signs, nurses notes. Data interpreted: Pulse oximetry: on room air kb is 100 %. Interpretation: normal. 00:16 Counseling: I had a detailed discussion with the patient and/or guardian regarding: the kb historical points, exam findings, and any diagnostic results supporting the discharge/admit diagnosis, lab results, the need for outpatient follow up, a family practitioner, to return to the emergency department if symptoms worsen or persist or if there are any questions or concerns that arise at home. ED course: Pt has no n/v/d, fever, chills, abd tenderness. WBC normal. Will discharge home to follow up with PCP and return for worsening/progressing symptoms. 11/27 23:06 Order name: Basic Metabolic Panel; Complete Time: 00:10 kb 11/27 23:06 Order name: CBC with Diff; Complete Time: 23:59 kb 11/27 23:06 Order name: Hepatic Function; Complete Time: 00:10 kb 11/27 23:06 Order name: Lipase; Complete Time: 00:10 kb 11/27 23:29 Order name: Urine Dipstick-Ancillary; Complete Time: 23:33 EDMS 11/27 23:34 Order name: Urine --Ancillary (enter results); Complete Time: 00:02 mw2 11/27 23:06 Order name: IV Saline Lock; Complete Time: 23:42 kb 11/27 23:06 Order name: Labs collected and sent; Complete Time: 23:42 kb 11/27 23:13 Order name: Urine Dipstick-Ancillary (obtain specimen); Complete Time: 23:34 kb 11/27 23:13 Order name: Urine Test (obtain specimen); Complete Time: 23:34 kb Administered Medications: 11/27 23:41 Drug: Ketorolac 15 mg Route: IVP; Site: right antecubital; tk1 11/28 00:36 Follow up: Pain 2/10 Adult tk1 00:27 Drug: Potassium Chloride 40 mEq Route: PO; tk1 00:27 Drug: Bentyl (dicyclomine) 20 mg Route: PO; tk1 Disposition: 08:05 Co-signature as Attending Physician, Lianet Little MD I agree with the assessment and sp3 plan of care. Disposition Summary: 11/28/21 00:17 Discharge Ordered Location: Home kb Condition: Stable kb Diagnosis - Abdominal pain, Generalized kb Followup: kb - With: Emergency Department - When: As needed - Reason: Worsening of condition Followup: kb - With: Private Physician - When: 2 - 3 days - Reason: Recheck today's complaints, Continuance of care, Re-evaluation by your physician Discharge Instructions: - Discharge Summary Sheet kb - Abdominal Pain, Adult, Rlze-eb-Cecr kb Forms: - Medication Reconciliation Form kb - Thank You Letter kb - Antibiotic Education kb - Prescription Opioid Use kb Prescriptions: - dicyclomine 20 mg Oral Tablet - take 1 tablet by ORAL route 4 times per day As needed; 20 tablet; Refills: 0, kb Product Selection Permitted Signatures: Dispatcher [employer] Autumn Mosley, TRIM MECHANIC-C TRIM MECHANIC-Ckb Lianet Little MD MD sp3 Ariela Vaughn tw5 Chantell Honeycutt tk1
--- NOTE | 2021-11-28 00:18 | ER ---
Nurse's Notes [facility] Name: Rosemary Montague Age: 21 yrs Sex: Female : 2000 Arrival Date: 11/27/2021 Time: 22:52 Bed 23 Private MD: Diagnosis: Abdominal pain, Generalized Presentation: 11/27 23:01 Chief complaint: Patient states: " I have been having stomach pain, it feels like a tw5 knot, or a burning sensation. I made myself throw up thinking that would make it better, but it has only gotten worse.". Coronavirus screen: Vaccine status: Patient reports being unvaccinated. Ebola Screen: Patient negative for fever greater than or equal to 101.5 degrees Fahrenheit, and additional compatible Ebola Virus Disease symptoms Patient denies exposure to infectious person. Patient denies travel to an Ebola-affected area in the 21 days before illness onset. Initial Sepsis Screen: Does the patient meet any 2 criteria? No. Patient's initial sepsis screen is negative. Does the patient have a suspected source of infection? No. Patient's initial sepsis screen is negative. Risk Assessment: Do you want to hurt yourself or someone else? Patient reports no desire to harm self or others. Onset of symptoms was November 26, 2021. 23:01 Method Of Arrival: Ambulatory tw5 23:01 Acuity: TIFFANY 3 tw5 Triage Assessment: 23:03 General: Appears in no apparent distress. Behavior is calm, cooperative, appropriate tw5 for age. Pain: Complains of pain in xiphoid area Pain currently is 8 out of 10 on a pain scale. GI: Reports Pain is 8 out of 10 on a pain scale. 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 - Social history:: Smoking status: Patient denies any tobacco usage or history of. Screenin:04 Abuse screen: Denies threats or abuse. Denies injuries from another. Nutritional tw5 screening: No deficits noted. Tuberculosis screening: No symptoms or risk factors identified. Fall Risk No fall in past 12 months (0 pts). Assessment: 23:43 General: Appears uncomfortable, well groomed, well developed, well nourished, Behavior tk1 is calm, cooperative, appropriate for age, Smells of Reports Denies fever, fatigue, chills. Pain: Complains of pain in umbilical area and right lower quadrant Pain does not radiate. Pain currently is 6 out of 10 on a pain scale. Quality of pain is described as aching, Pain began 1 day ago. Is intermittent, Alleviated by heat application, Aggravated by Noted to be Also complains of no other associated symptoms. Current management is with Toradol Goal of pain control is to be pain free. GI: Abdomen is flat, Bowel sounds present X 4 quads. Abd is soft X 4 quads Reports lower abdominal pain, cramping, normal bowel habits, Patient currently denies diarrhea. Vital Signs: 23:01 BP 134 / 76; Pulse 60; Resp 18; Temp 98.2; Pulse Ox 100% on R/A; Weight 68.04 kg; tw5 Height 5 ft. 3 in. (160.02 cm); Pain 8/10; 23:10 BP 119 / 69 LA Supine (auto/reg); Pulse 53 RA; Resp 16; Temp 98.6(O); Pulse Ox 100% on tk1 R/A; 23:45 BP 113 / 68 LA Supine (auto/reg); Pulse 51 RA; Resp 16 S; Pulse Ox 100% on R/A; tk1 11/28 00:34 BP 91 / 61 LA Sitting (auto/reg); Pulse 55 RA; Resp 16 S; Temp 98.2(O); Pulse Ox 100% tk1 on R/A; 00:36 Pain 2/10; tk1 11/27 23:01 Body Mass Index 26.57 (68.04 kg, 160.02 cm) tw5 [place] Coma Score: 11/27 23:10 Eye Response: spontaneous(4). Verbal Response: oriented(5). Motor Response: obeys tk1 commands(6). Total: 15. ED Course: 22:52 Patient arrived in ED. bp1 23:03 Triage completed. tw5 23:04 Arm band placed on left wrist. tw5 23:06 [facility] Ortiz [facility]C [facility] kb 23:06 Lianet Little MD is Attending Physician. kb 23:17 Chantell Honeycutt is Primary Nurse. tk1 23:20 Inserted saline lock: 20 gauge in right antecubital area, using aseptic technique. tk1 23:42 Basic Metabolic Panel Sent. tk1 23:42 CBC with Diff Sent. tk1 23:42 Hepatic Function Sent. tk1 23:42 Lipase Sent. tk1 23:48 Pulse ox on. NIBP on. SO at bedside. Door closed. Lights dimmed. tk1 23:50 Awaiting lab results. tk1 11/28 00:22 No provider procedures requiring assistance completed. IV discontinued, intact, tk1 bleeding controlled, No redness/swelling at site. Pressure dressing applied. Administered Medications: 11/27 23:41 Drug: Ketorolac 15 mg Route: IVP; Site: right antecubital; tk1 11/28 00:36 Follow up: Pain 12/26 Adult tk1 00:27 Drug: Potassium Chloride 40 mEq Route: PO; tk1 00:27 Drug: Bentyl (dicyclomine) 20 mg Route: PO; tk1 Outcome: 00:17 Discharge ordered by MD. kb 00:32 Discharged to home ambulatory. tk1 00:32 Condition: improved 00:32 Condition: stable 00:32 Discharge instructions given to patient, significant other, Instructed on discharge instructions, follow up and referral plans. medication usage, Demonstrated understanding of instructions, follow-up care, medications, Prescriptions given X 1. 00:40 Patient left the ED. tk1 Signatures: Autumn Ortiz, BUSHING AND BROACH OPERATOR-C BUSHING AND BROACH OPERATOR-Ckb Serena Marie Tiffany tw5 Chantell Honeycutt tk1 Corrections: (The following items were deleted from the chart) 11/27 23:04 23:01 Pulse 60bpm; Resp 18bpm; Pulse Ox 100% RA; Temp 98.2F; tw5 tw5
[2021-11-28] MEDS ORDERED: POTASSIUM CL SA 10 MEQ TAB PO ONE (00:25)
[2021-11-28] MEDS ORDERED: DICYCLOMINE HCL 10 MG CAP ONE (00:26)
[2021-11-28 00:46] VITALS: O2SAT 100
[2021-11-28 00:50] VITALS: BP 91/61; TEMP 98.2
== END 2021-11-28 00:40 | disposition home or self-care (01) ==
LOC: ER 22:48
DX: R10.84 Generalized abdominal pain (principal)
CPT/HCPCS: 36415; 80048; 80076; 81003; 81025; 83690; 85025; 96374; 99284